=== PATIENT | female | born 1960 | race Hispanic/Latino ===

== ENCOUNTER 2021-07-24 13:51 | Inpatient (IN) | payer OTHER ==
[~2021-07-24] VITALS: Ht 160 cm; Wt 73.0 kg
[2021-07-24] VITALS (8 sets, daily range): BP systolic 104–141; BP diastolic 52–77
[2021-07-24] MEDS ORDERED: HEPARIN 10,000 UNIT/10ML (1,000 UNIT/ML) VIAL ONE (15:18)
[2021-07-24] MEDS ORDERED: LIDOCAINE HCL 1% MDV 50ML VIAL ONE (15:19)
[2021-07-24] MEDS ORDERED: IODIXANOL 320 MG/ML 100 ML VIAL ONE (15:19)
[2021-07-24] MEDS ORDERED: NITROGLYCERIN 50MG VIAL ONE (15:19)
[2021-07-24] MEDS ORDERED: SODIUM BICARB 50MEQ 50ML VIAL 50 ML ONE (15:37)
[2021-07-24] MEDS ORDERED: MIDAZOLAM HCL 1 MG/ML 2ML VIAL ONE (15:43)
[2021-07-24] MEDS ORDERED: FENTANYL CITRATE PF 50 MCG/1 ML 2ML VIAL ONE ×3 (15:43→18:17)
[2021-07-24] MEDS ORDERED: EPTIFIBATIDE 75MG/100ML BOTTLE 100 ML IV ONE (16:57)
[2021-07-24] MEDS ORDERED: EPTIFIBATIDE 2 MG/ML 10 ML VIAL IVP ONE (16:58)
[2021-07-24] MEDS ORDERED: HEPARIN 1,000 UNIT VIAL ONE (18:24)
[2021-07-24] MEDS ORDERED: CLOPIDOGREL 300MG TAB ONE (18:51)
[2021-07-24] MEDS ORDERED: 0.9%NACL 1000ML 1,000 ML IV SCH (20:00)
[2021-07-24] MEDS ORDERED: CARV25TA PO (20:10)
[2021-07-24] MEDS ORDERED: ATOR40TA69 PO (20:10)
[2021-07-24] MEDS ORDERED: ASPI-1005 PO (20:10)
[2021-07-24] MEDS ORDERED: CILO100T PO (20:10)
[2021-07-24] MEDS ORDERED: CLOP75TA32 PO (20:10)
[2021-07-24] MEDS ORDERED: AMLO-258 PO (20:10)
[2021-07-24] MEDS ORDERED: GABA600T10 PO (20:10)
[2021-07-24] MEDS ORDERED: GLIM4TAB36 PO (20:10)
[2021-07-24] MEDS ORDERED: LOSA100T58 PO (20:10)
[2021-07-24] MEDS ORDERED: EMPA25TA PO (20:10)
[2021-07-25] MEDS ORDERED: ACETAMINOPHEN 325 MG TAB PO PRN
[2021-07-25] MEDS ORDERED: PHARMACY COMMUNICATION MISC SCH
[2021-07-25] MEDS ORDERED: LACTULOSE 20 GM/30 ML UDCUP PO PRN
[2021-07-25] MEDS ORDERED: HYDROCODONE/ACETAMINOPHEN 5/325 MG TAB PO PRN
[2021-07-25] MEDS ORDERED: ACETAMINOPHEN 650 MG SUPPOSITORY RC PRN
[2021-07-25] MEDS ORDERED: ONDANSETRON 4MG INJ IVP PRN
[2021-07-25] MEDS ORDERED: HYDRALAZINE 20MG/ML VIAL IV PRN
[2021-07-25] MEDS: ZOSYN 3.375GM +NS 50ML IV SCH ×4 (02:54→23:21)
[2021-07-25 03:49] VITALS: BP 134/62
[2021-07-25] MEDS: 0.9%NACL 1000ML 1,000 ML IV SCH ×3 (04:01→23:28)
[2021-07-25 04:39] LABS: HEMATOCRIT 27.4 % (36-48); MEAN CORPUSCULAR HEMOGLOBIN 25.9 pg (27.0-33.0); MEAN CORPUSCULAR VOLUME 83.5 fL (79-99); PLATELET COUNT (AUTO) 352 K/uL (130-400); RED BLOOD CELL COUNT(AUTO) 3.28 MIL/uL (4.00-5.50); RED CELL DISTRIBUTION WIDTH 13.8 % (11.0-15.5); WHITE BLOOD COUNT (AUTO) 10.7 K/uL (4.8-10.8)
[2021-07-25 04:52] LABS: CREATININE 1.1 mg/dL (0.5-1.5); MAGNESIUM 1.8 mg/dL (1.80-2.40); PHOSPHORUS 3.3 mg/dL (2.5-4.9); POTASSIUM 3.3 mmol/L (3.5-5.1)
[2021-07-25] MEDS ORDERED: KCL 20 MEQ ERTAB PO PRN (06:30)
[2021-07-25] MEDS ORDERED: MAGNESIUM 2GM PREMIX 50ML 50 ML IV PRN (06:30)
[2021-07-25] MEDS ORDERED: ASPIRIN 81MG CHEW TAB PO SCH (07:27)
[2021-07-25 08:00] VITALS: BP 143/71
[2021-07-25 08:31] VITALS: BP 143/71
[2021-07-25] MEDS ORDERED: VANCOMYCIN 1G 1.25 GM in 0.9% NACL 250ML 250 ML IVPB SCH (09:00)
[2021-07-25] MEDS: ASPIRIN 81MG CHEW TAB PO SCH (09:21)
[2021-07-25] MEDS: CLOPIDOGREL 75MG TAB PO SCH (09:21)
[2021-07-25] MEDS: AMLODIPINE 5 MG TAB PO SCH (09:22)
[2021-07-25] MEDS: CARVEDILOL 25 MG TABLET PO SCH ×2 (09:22→20:54)
[2021-07-25] MEDS: GABAPENTIN 300 MG CAPSULE PO SCH ×3 (09:22→20:48)
[2021-07-25] MEDS ORDERED: VANCOMYCIN 1G/250ML KIT 250 ML IV SCH (09:30)
[2021-07-25 12:22] VITALS: BP 141/63
[2021-07-25 16:44] VITALS: BP 146/67
[2021-07-25] MEDS: ENOXAPARIN SODIUM 30 MG/0.3 ML SQ SCH (17:40)
[2021-07-25 20:00] VITALS: BP 129/69
[2021-07-25] MEDS ORDERED: 0.9%NACL 100ML 100 ML ONE (20:43)
[2021-07-25] MEDS: VANCOMYCIN 500MG+NS 100ML 100 ML IV SCH (20:48)
[2021-07-25] MEDS: ATORVASTATIN 40 MG TABLET PO SCH (20:48)
[2021-07-26] VITALS (19 sets, daily range): BP systolic 117–155; BP diastolic 52–78
[2021-07-26] MEDS: GABAPENTIN 300 MG CAPSULE PO SCH ×3 (08:49→22:32)
[2021-07-26] MEDS: ZOSYN 3.375GM +NS 50ML IV SCH ×3 (08:50→23:50)
[2021-07-26] MEDS: CARVEDILOL 25 MG TABLET PO SCH ×2 (08:50→22:31)
[2021-07-26] MEDS: AMLODIPINE 5 MG TAB PO SCH (08:54)
[2021-07-26] MEDS: CLOPIDOGREL 75MG TAB PO SCH (08:54)
[2021-07-26] MEDS: ENOXAPARIN SODIUM 30 MG/0.3 ML SQ SCH (08:55)
[2021-07-26] MEDS: ASPIRIN 81MG CHEW TAB PO SCH (08:56)
[2021-07-26] MEDS: VANCOMYCIN 500MG+NS 100ML 100 ML IV SCH ×2 (08:56→22:31)
[2021-07-26] MEDS: 0.9%NACL 1000ML 1,000 ML IV SCH (16:39)
[2021-07-26] MEDS ORDERED: 0.9%NACL 100ML 100 ML ONE (19:39)
[2021-07-26] MEDS ORDERED: LIDOCAINE HCL 400MG/20ML VIAL ONE (19:48)
[2021-07-26] MEDS ORDERED: BUPIVACAINE/PF 0.5% 30ML VIAL ONE (19:48)
[2021-07-26] MEDS ORDERED: MIDAZOLAM HCL 1 MG/ML 2ML VIAL ONE (20:09)
[2021-07-26] MEDS ORDERED: FENTANYL CITRATE PF 50 MCG/1 ML 2ML VIAL ONE (20:09)
[2021-07-26] MEDS: ATORVASTATIN 40 MG TABLET PO SCH (22:32)
[2021-07-27] VITALS (8 sets, daily range): BP systolic 128–155; BP diastolic 56–95
[2021-07-27] MEDS ORDERED: MORPHINE 2 MG SYG IVP PRN (01:30)
[2021-07-27] MEDS: 0.9%NACL 1000ML 1,000 ML IV SCH ×2 (04:24→20:04)
[2021-07-27] MEDS: ZOSYN 3.375GM +NS 50ML IV SCH ×2 (08:02→15:06)
[2021-07-27] MEDS: ENOXAPARIN SODIUM 30 MG/0.3 ML SQ SCH (08:03)
[2021-07-27] MEDS: ASPIRIN 81MG CHEW TAB PO SCH (08:03)
[2021-07-27] MEDS: CARVEDILOL 25 MG TABLET PO SCH ×2 (08:03→20:05)
[2021-07-27] MEDS: AMLODIPINE 5 MG TAB PO SCH (08:04)
[2021-07-27] MEDS: CLOPIDOGREL 75MG TAB PO SCH (08:04)
[2021-07-27] MEDS: GABAPENTIN 300 MG CAPSULE PO SCH ×3 (08:05→20:05)
[2021-07-27] MEDS: HYDROMORPHONE 0.5 MG SYG (0.5MG/0.5ML) IVP PRN ×2 (08:07→20:06)
[2021-07-27] MEDS: VANCOMYCIN 500MG+NS 100ML 100 ML IV SCH ×2 (08:07→20:04)
[2021-07-27] MEDS: ATORVASTATIN 40 MG TABLET PO SCH (20:05)
[2021-07-28 03:50] VITALS: BP 126/64
[2021-07-28] MEDS: ZOSYN 3.375GM +NS 50ML IV SCH ×4 (03:57→23:48)
[2021-07-28 06:23] VITALS: BP 141/63
[2021-07-28] MEDS: POTASSIUM CHLORIDE 10% ELIXIR 20 MEQ/15 ML UDCUP PO PRN ×3 (07:25→09:21)
[2021-07-28] MEDS: GABAPENTIN 300 MG CAPSULE PO SCH ×3 (09:15→20:57)
[2021-07-28] MEDS: CARVEDILOL 25 MG TABLET PO SCH ×2 (09:16→20:58)
[2021-07-28] MEDS: ASPIRIN 81MG CHEW TAB PO SCH (09:16)
[2021-07-28] MEDS: CLOPIDOGREL 75MG TAB PO SCH (09:16)
[2021-07-28] MEDS: ENOXAPARIN SODIUM 30 MG/0.3 ML SQ SCH (09:17)
[2021-07-28] MEDS: AMLODIPINE 5 MG TAB PO SCH (09:17)
[2021-07-28] MEDS: VANCOMYCIN 500MG+NS 100ML 100 ML IV SCH ×2 (09:18→20:56)
[2021-07-28 11:00] VITALS: BP 129/60
[2021-07-28 16:00] VITALS: BP 138/67
[2021-07-28 19:11] VITALS: BP 152/71
[2021-07-28] MEDS ORDERED: 0.9%NACL 100ML 100 ML ONE (20:10)
[2021-07-28] MEDS: ATORVASTATIN 40 MG TABLET PO SCH (20:57)
[2021-07-28] MEDS: HYDROMORPHONE 0.5 MG SYG (0.5MG/0.5ML) IVP PRN (20:59)
[2021-07-28] MEDS: 0.9%NACL 1000ML 1,000 ML IV SCH (21:20)
[2021-07-28 23:06] VITALS: BP 142/64
[2021-07-29 03:13] VITALS: BP 126/59
[2021-07-29 04:30] LABS: HEMATOCRIT 23.4 % (36-48); MEAN CORPUSCULAR HEMOGLOBIN 26.4 pg (27.0-33.0); MEAN CORPUSCULAR HGB CONC 32.1 g/dL (32.0-36.0); MEAN CORPUSCULAR VOLUME 82.4 fL (79-99); RED BLOOD CELL COUNT(AUTO) 2.84 MIL/uL (4.00-5.50); RED CELL DISTRIBUTION WIDTH 14.2 % (11.0-15.5); WHITE BLOOD COUNT (AUTO) 9.4 K/uL (4.8-10.8)
[2021-07-29 05:00] LABS: ALBUMIN 2.2 g/dL (3.5-5.0); BILIRUBIN,TOTAL 0.4 mg/dL (0.2-1.0); CREATININE 1.2 mg/dL (0.5-1.5); POTASSIUM 3.2 mmol/L (3.5-5.1); TOTAL PROTEIN, SERUM 6.1 g/dL (6.0-8.3)
[2021-07-29] MEDS: POTASSIUM CHLORIDE 10% ELIXIR 20 MEQ/15 ML UDCUP PO PRN ×2 (05:15→07:00)
[2021-07-29 08:00] VITALS: BP 153/66
[2021-07-29] MEDS: ZOSYN 3.375GM +NS 50ML IV SCH (08:54)
[2021-07-29] MEDS: VANCOMYCIN 500MG+NS 100ML 100 ML IV SCH ×2 (08:54→21:41)
[2021-07-29] MEDS: GABAPENTIN 300 MG CAPSULE PO SCH ×3 (08:55→21:45)
[2021-07-29] MEDS: CLOPIDOGREL 75MG TAB PO SCH (08:56)
[2021-07-29] MEDS: CARVEDILOL 25 MG TABLET PO SCH ×2 (08:56→21:45)
[2021-07-29] MEDS: ENOXAPARIN SODIUM 30 MG/0.3 ML SQ SCH ×2 (08:56→09:00)
[2021-07-29] MEDS: AMLODIPINE 5 MG TAB PO SCH (08:56)
[2021-07-29] MEDS: ASPIRIN 81MG CHEW TAB PO SCH (08:56)
[2021-07-29] MEDS: CEFTRIAXONE 2GM VIAL IVP SCH (11:55)
[2021-07-29 12:40] VITALS: BP 149/63
[2021-07-29 16:30] VITALS: BP 163/81
[2021-07-29 19:16] VITALS: BP 156/69
[2021-07-29] MEDS: ATORVASTATIN 40 MG TABLET PO SCH (21:45)
[2021-07-29] MEDS: DOXYCYCLINE HYCLATE 100 MG TABLET PO SCH (21:45)
[2021-07-29 23:04] VITALS: BP 137/54
[2021-07-30] MEDS: CEPHALEXIN 500 MG CAPSULE PO SCH ×2 (06:00→11:20)
[2021-07-30 07:48] VITALS: BP 147/79
[2021-07-30 09:36] LABS: MEAN CORPUSCULAR HEMOGLOBIN 26.6 pg (27.0-33.0); MEAN CORPUSCULAR HGB CONC 32.1 g/dL (32.0-36.0); MEAN CORPUSCULAR VOLUME 82.8 fL (79-99); RED BLOOD CELL COUNT(AUTO) 3.38 MIL/uL (4.00-5.50); RED CELL DISTRIBUTION WIDTH 14.1 % (11.0-15.5); WHITE BLOOD COUNT (AUTO) 9.4 K/uL (4.8-10.8)
[2021-07-30 09:55] LABS: CREATININE 0.9 mg/dL (0.5-1.5); POTASSIUM 3.8 mmol/L (3.5-5.1)
[2021-07-30] MEDS ORDERED: 0.9%NACL 100ML 100 ML ONE ×2 (10:05→14:49)
[2021-07-30] MEDS: CEFTRIAXONE 2GM VIAL IVP SCH (10:06)
[2021-07-30] MEDS: ASPIRIN 81MG CHEW TAB PO SCH (10:06)
[2021-07-30] MEDS: AMLODIPINE 5 MG TAB PO SCH (10:06)
[2021-07-30] MEDS: ENOXAPARIN SODIUM 30 MG/0.3 ML SQ SCH (10:07)
[2021-07-30] MEDS: DOXYCYCLINE HYCLATE 100 MG TABLET PO SCH (10:07)
[2021-07-30] MEDS: CARVEDILOL 25 MG TABLET PO SCH (10:07)
[2021-07-30] MEDS: CLOPIDOGREL 75MG TAB PO SCH (10:07)
[2021-07-30] MEDS: GABAPENTIN 300 MG CAPSULE PO SCH ×2 (10:10→14:50)
[2021-07-30] MEDS: VANCOMYCIN 500MG+NS 100ML 100 ML IV SCH (10:11)
[2021-07-30 11:26] VITALS: BP 154/62
[2021-07-30] MEDS: INSULIN HUMULIN R 100 UNIT/ML 3ML SQ SCH ×2 (12:24→16:22)
[2021-07-30] MEDS ORDERED: NON-FORMULARY MEDICATION 1 EACH (Gabapentin 600 MG) PO SCH (14:00)
[2021-07-30] MEDS ORDERED: VANCOMYCIN 500MG+NS 100ML 100 ML IV SCH (15:00)
[2021-07-30] MEDS ORDERED: DOXY100C5 PO (15:09)
[2021-07-30] MEDS ORDERED: CEPH500B PO (15:09)
[2021-07-30 16:51] VITALS: BP 152/71
[2021-07-30] MEDS ORDERED: HONEY 1 APPL/ML TUBE TP SCH (17:00)
[2021-07-30] MEDS ORDERED: GLIMEPIRIDE 2 MG TABLET PO SCH (21:00)
[2021-07-31] MEDS ORDERED: NON-FORMULARY MEDICATION 1 EACH (Amlodipine Besylate 10 MG) PO SCH (09:00)
[2021-07-31] MEDS ORDERED: LOSARTAN 100 MG TABLET PO SCH (09:00)
== END 2021-07-30 17:57 | disposition home or self-care (01) | DRG 271 ==
LOC: 2DH 15:11
PROVIDERS: ADMIT Internal Medicine Critical Care Medicine; ATTEND Internal Medicine Critical Care Medicine
PROC: 04CU3ZZ Extirpation of Matter from Left Peroneal Artery, Percutaneous Approach (ICD-10-PCS; principal; 2021-07-24)
PROC: 04CN3ZZ Extirpation of Matter from Left Popliteal Artery, Percutaneous Approach (ICD-10-PCS; 2021-07-24)
PROC: 04CL3ZZ Extirpation of Matter from Left Femoral Artery, Percutaneous Approach (ICD-10-PCS; 2021-07-24)
PROC: 047U3D1 Dilation of Left Peroneal Artery with Intraluminal Device, using Drug-Coated Balloon, Percutaneous Approach (ICD-10-PCS; 2021-07-24)
PROC: 04CS3ZZ Extirpation of Matter from Left Posterior Tibial Artery, Percutaneous Approach (ICD-10-PCS; 2021-07-24)
PROC: 047S3ZZ Dilation of Left Posterior Tibial Artery, Percutaneous Approach (ICD-10-PCS; 2021-07-24)
PROC: 047L3ZZ Dilation of Left Femoral Artery, Percutaneous Approach (ICD-10-PCS; 2021-07-24)
PROC: 047N3D1 Dilation of Left Popliteal Artery with Intraluminal Device, using Drug-Coated Balloon, Percutaneous Approach (ICD-10-PCS; 2021-07-24)
PROC: B4101ZZ Fluoroscopy of Abdominal Aorta using Low Osmolar Contrast (ICD-10-PCS; 2021-07-24)
PROC: B41G1ZZ Fluoroscopy of Left Lower Extremity Arteries using Low Osmolar Contrast (ICD-10-PCS; 2021-07-24)
PROC: 0Y6N0Z9 Detachment at Left Foot, Partial 1st Ray, Open Approach (ICD-10-PCS; 2021-07-26)
PROC: 0JBR0ZZ Excision of Left Foot Subcutaneous Tissue and Fascia, Open Approach (ICD-10-PCS; 2021-07-26)
DX: E11.52 Type 2 diabetes mellitus with diabetic peripheral angiopathy with gangrene (principal); I50.22 Chronic systolic (congestive) heart failure; L03.116 Cellulitis of left lower limb; L97.429 Non-pressure chronic ulcer of left heel and midfoot with unspecified severity; I96 Gangrene, not elsewhere classified; E11.65 Type 2 diabetes mellitus with hyperglycemia; E66.9 Obesity, unspecified; I11.0 Hypertensive heart disease with heart failure; I25.10 Atherosclerotic heart disease of native coronary artery without angina pectoris; Z20.822 Contact with and (suspected) exposure to COVID-19; E78.5 Hyperlipidemia, unspecified; I25.2 Old myocardial infarction; Z95.810 Presence of automatic (implantable) cardiac defibrillator; E11.621 Type 2 diabetes mellitus with foot ulcer; Z79.899 Other long term (current) drug therapy; Z68.25 Body mass index [BMI] 25.0-25.9, adult
CPT/HCPCS: 36415; 37184; 37185; 37225; 37229; 73630; 73700; 75716; 80048; 80053; 80061; 80202; 82948; 83735; 84100; 84132; 85027; 85347; 87070; 87076; 87077; 87186; 87205; 87635; 97039; 99156; 99157; C1760; C1769; C1893; C1894; G0378; J0696; J1170; J1327; J1644; J1650; J1815; J2250; J2543; J3010; J3370; J3475; J3490; J7030; Q9967

== ENCOUNTER → 2024-03-02 | Outpatient (CLI) | payer MEDICARE ==
[~2024-03-02] MED LIST: AMLO-258 PO; ASPI-1005 PO; ATOR40TA69 PO; CARV25TA PO; CEPH500B PO; CILO100T3 PO; CLOP75TA32 PO; DOXY100C5 PO; EMPA25TA PO; GABA-1405 PO; GLIM4TAB36 PO; LOSA100T59 PO
[2024-03-02 12:01] LABS: BASOPHILS # (AUTO) 0.05 K/uL (0.00-0.20); BASOPHILS % (AUTO) 0.6 % (0.0-5.0); EOSINOPHILS # (AUTO) 0.19 K/uL (0.00-0.70); EOSINOPHILS % (AUTO) 2.3 % (0.0-8.0); IMMATURE GRANULOCYTE ABSOLUTE 0.04 K/uL (0-1); LYMPHOCYTES # (AUTO) 1.8 K/uL (1.0-4.8); LYMPHOCYTES % (AUTO) 22.2 % (21.0-51.0); MEAN CORPUSCULAR HEMOGLOBIN 27.5 pg (27.0-33.0); MEAN CORPUSCULAR HGB CONC 32.3 g/dL (32.0-36.0); MEAN CORPUSCULAR VOLUME 85.2 fL (79-99); MONOCYTES # (AUTO) 0.5 K/uL (0.1-1.0); MONOCYTES % (AUTO) 6.5 % (3.0-13.0); NEUTROPHILS # (AUTO) 5.6 K/uL (1.8-7.7); NEUTROPHILS % (AUTO) 67.9 % (40.0-77.0); PLATELET COUNT (AUTO) 305 K/uL (130-400); RED BLOOD CELL COUNT(AUTO) 4.58 MIL/uL (4.00-5.50); RED CELL DISTRIBUTION WIDTH 13.1 % (11.0-15.5); WHITE BLOOD COUNT (AUTO) 8.3 K/uL (4.8-10.8)
[2024-03-02 12:23] LABS: ALBUMIN 3.9 g/dL (3.5-5.0); BILIRUBIN,TOTAL 1.3 mg/dL (0.2-1.0); CREATININE 0.8 mg/dL (0.5-1.0); POTASSIUM 4.2 mmol/L (3.5-5.1); TOTAL PROTEIN, SERUM 7.3 g/dL (6.0-8.3)
== END | disposition home or self-care (01) ==
LOC: LAB 10:32
PROVIDERS: ATTEND Internal Medicine Cardiovascular Disease
DX: I25.2 Old myocardial infarction (principal); I73.9 Peripheral vascular disease, unspecified
CPT/HCPCS: 36415; 80053; 80061; 85025

== ENCOUNTER → 2024-04-28 | Outpatient (CLI) | payer MEDICARE ==
[~2024-04-28] MED LIST changes: +AMLO-257 PO; -AMLO-258 PO; -ATOR40TA69 PO; -CEPH500B PO; -CILO100T3 PO; +CLON1PAT12 TD; +DAPA5TAB PO; -DOXY100C5 PO; -EMPA25TA PO; +EZET10TA48 PO; -GABA-1405 PO; +GABA-529 PO; +HYDR25TA PO; +METF-446 PO; +ROSU10TA72 PO
[2024-04-28 12:21] LABS: CREATININE 0.9 mg/dL (0.5-1.0); POTASSIUM 4.4 mmol/L (3.5-5.1)
== END | disposition home or self-care (01) ==
LOC: LAB 09:41
PROVIDERS: ATTEND Internal Medicine Cardiovascular Disease
DX: I10 Essential (primary) hypertension (principal); E78.2 Mixed hyperlipidemia; I87.2 Venous insufficiency (chronic) (peripheral)
CPT/HCPCS: 36415; 80048

== ENCOUNTER → 2024-05-25 | Outpatient (CLI) | payer MEDICARE ==
[2024-05-25 12:44] LABS: CREATININE 1.1 mg/dL (0.5-1.0); MAGNESIUM 2.1 mg/dL (1.80-2.40)
== END | disposition home or self-care (01) ==
LOC: LAB 09:35
PROVIDERS: ATTEND Internal Medicine Cardiovascular Disease
DX: I25.810 Atherosclerosis of coronary artery bypass graft(s) without angina pectoris (principal); I65.22 Occlusion and stenosis of left carotid artery; I25.2 Old myocardial infarction
CPT/HCPCS: 36415; 80048; 83735

== ENCOUNTER 2024-07-28 19:08 | Emergency (ER) | payer MEDICARE, MEDICAID ==
[~2024-07-28] VITALS: Ht 160 cm; Wt 70.3 kg
[~2024-07-28 19:08] MED LIST changes: -AMLO-257 PO; +AMLO-258 PO; +AMOX1TAB16 PO; +CLON0.1T PO; -CLON1PAT12 TD; -DAPA5TAB PO; -EZET10TA48 PO
--- NOTE | 2024-07-28 19:49 | ERN ---
General Chief Complaint: Neck Pain Stated Complaint: C/O PAIN TO NECK AND THROAT; NECK SX (06/25/2024) Time Seen by MD: 19:26 History of Present Illness Initial Comments Patient is a 64-year-old female with multiple medical problems including hypertension diabetes peripheral vascular disease status post carotid endarterectomy a month ago states that she has had neck pain and difficulty swallowing and a tightness in her throat ever since the surgery. No fevers positive chills. No difficulty swallowing. She does report that she has a cough and shortness of breath. Incision from the carotid endarterectomy is well healed. She does state that the ET tube created a lot of pain when she woke up from surgery. Her voice sounds normal to her. No posterior neck pain and no neurovascular symptoms in any of her extremities. Allergies: Coded Allergies: pioglitazone (Unverified Allergy, Unknown, 04/23/24) Home Meds Active Scripts Amoxicillin/Potassium Clav (Amox Tr-K Clv 875-125 mg Tab) 875 Mg-125 Mg Tablet, 1 TAB PO BID for 10 Days, #20 TAB 0 Refills Prov:PAUL NGO HEEL BUFFER 07/14/24 Reported Medications Clonidine HCl (Clonidine HCl) 0.1 Mg Tablet, 0.1 MG PO BID, TAB 07/10/24 Amlodipine Besylate (Amlodipine Besylate) 10 Mg Tablet, 1 TAB PO DAILY for 30 Days, #30 TAB 0 Refills 07/10/24 Rosuvastatin Calcium (Rosuvastatin Calcium) 10 Mg Tablet, 20 MG PO PM, TAB 04/21/24 Hydrochlorothiazide (Hydrochlorothiazide) 25 Mg Tablet, 25 MG PO AM, TAB 04/21/24 Gabapentin (Gabapentin) 100 Mg Capsule, 100 MG PO TID, CAP 04/21/24 Metformin HCl (Metformin HCl) 1,000 Mg Tablet, 1000 MG PO BID, TAB RESUME METFORMIN 04/24/24 04/21/24 Glimepiride (Glimepiride) 4 Mg Tablet, 4 MG PO BID, TAB 07/24/21 Carvedilol (Carvedilol) 25 Mg Tablet, 25 MG PO BID, TAB 07/24/21 Losartan Potassium (Losartan Potassium) 100 Mg Tablet, 100 MG PO DAILY, TAB 07/24/21 Clopidogrel Bisulfate (Clopidogrel) 75 Mg Tablet, 75 MG PO DAILY, TAB 07/24/21 Aspirin (ASPIRIN 81MG CHEW TAB) 81 Mg Tab.chew, 81 MG PO DAILY, TAB.CHEW 07/24/21 Past Medical History Past Medical History: Diabetes-Type II, High Cholesterol, Hypertension Medical History Other: TAKES BLOOD THINNERS Past Surgical History: Cholecystectomy, Other Surgical History Other: OPEN HEART (2018), NECK SX (06/25/2024); LEFT TOE AMPUTATION Constitutional: (+) chills EENTM: (-) eye pain, (-) blurred vision, (-) tearing, (-) double vision, (-) ear pain, (-) ear discharge, (-) nose pain, (-) nose congestion, (-) throat pain, (-) Throat swelling, (-) mouth pain, (-) tooth pain, (-) mouth swelling, (-) other documentation Respiratory: (+) cough, (+) short of breath Cardiovascular: (-) chest pain, (-) edema, (-) palpitations, (-) syncope, (-) dyspnea on exertion, (-) other documentation Gastrointestinal/Abdominal: (-) nausea, (-) vomiting, (-) diarrhea, (-) abdominal pain, (-) abdominal distention, (-) constipation, (-) rectal bleeding, (-) dark stool/melena, (-) other documentation Skin: (-) laceration, (-) contusion, (-) abrasion, (-) abscess, (-) rash, (-) change in color, (-) change in hair, (-) change in nails, (-) diaphoresis, (-) dryness, (-) other documentation Physical Exam General Appearance: (+) no apparent distress Orientation: (+) alert, (+) oriented x 3 Head/Face Trauma: No Eye: bilateral eye normal inspection, bilateral eye PERRL, bilateral eye EOMI Ear, Nose, Throat: (+) hearing grossly normal, (+) normal ENT inspection, (+) moist mucous membraine Ear, Nose, Throat Comment No tongue deviation when protruding from the mouth. No swollen lymph nodes. She does have numbness in the submental region medial to the incision to midline. Good sensation all along the mandible. Good sensation lateral to the incision. Neck: (+) normal inspection, (+) supple, (+) full range of motion Neck Comment Well-healed endarterectomy incision on her left neck. Still some residual Dermabond present on the skin, no signs of infection, nontender. No lymphadenopathy. Respiratory: (+) chest non-tender, (+) lungs clear, (+) well ventilated Heart: (+) regular, (+) no gallop Gastrointestinal: (+) soft, (+) non-tender, (+) bowel sound present Extremities: (+) normal range of motion, (+) non-tender, (+) normal inspection Results Laboratory and Microbiology Lab and Micro Result Laboratory Tests Test 07/28/24 20:05 07/28/24 20:10 07/28/24 20:28 07/28/24 20:43 White Blood Count 8.9 K/uL (4.8-10.8) Red Blood Count 3.83 MIL/uL (4.00-5.50) L Hemoglobin 10.9 g/dL (12.0-16.0) L Hematocrit 32.5 % (36-48) L Mean Corpuscular Volume 84.9 fL (79-99) Mean Corpuscular Hemoglobin 28.5 pg (27.0-33.0) Mean Corpuscular Hemoglobin Concent 33.5 g/dL (32.0-36.0) Red Cell Distribution Width 13.9 % (11.0-15.5) Platelet Count 303 K/uL (130-400) Mean Platelet Volume 9.8 fL (7.5-10.5) Immature Granulocyte % (Auto) 0.3 % (0-1) Neutrophils (%) (Auto) 74.7 % (40.0-77.0) Lymphocytes (%) (Auto) 17.4 % (21.0-51.0) L Monocytes (%) (Auto) 5.4 % (3.0-13.0) Eosinophils (%) (Auto) 1.6 % (0.0-8.0) Basophils (%) (Auto) 0.6 % (0.0-5.0) Neutrophils # (Auto) 6.7 K/uL (1.8-7.7) Lymphocytes # (Auto) 1.6 K/uL (1.0-4.8) Monocytes # (Auto) 0.5 K/uL (0.1-1.0) Eosinophils # (Auto) 0.14 K/uL (0.00-0.70) Basophils # (Auto) 0.05 K/uL (0.00-0.20) Absolute Immature Granulocyte (auto 0.03 K/uL (0-1) Nucleated Red Blood Cells 0.0 % (0.0-0.19) Influenza Type A Antigen Negative For Type A Influenza Type B Antigen Negative For Type B SARS-CoV-2 Antigen (Rapid) PRESUMPTIVE NEGATIVE Group A Streptococcus Rapid negative (NEGATIVE) Sodium Level 139 mmol/L (136-145) Potassium Level 4.2 mmol/L (3.5-5.1) Chloride Level 104 mmol/L (101-111) Carbon Dioxide Level 25 mmol/L (21-32) Blood Urea Nitrogen 15 mg/dL (7-18) Creatinine 0.9 mg/dL (0.5-1.0) Glomerular Filtration Rate Calc 71 mL/min (>90) Random Glucose 101 mg/dL (70-105) Total Calcium 8.8 mg/dL (8.5-10.1) Urine Color COLORLESS (YELLOW) Urine Appearance CLOUDY (CLEAR) H Urine pH 5.5 (5.0-8.0) Urine Specific [place] 1.007 (1.001-1.031) Urine Protein NEGATIVE mg/dL (NEGATIVE) Urine Glucose (UA) NEGATIVE mg/dL (NEGATIVE) Urine Ketones NEGATIVE mg/dL (NEGATIVE) Urine Occult Blood NEGATIVE (NEGATIVE) Urine Nitrate NEGATIVE (NEGATIVE) Urine Bilirubin NEGATIVE mg/dL (NEGATIVE) Urine Urobilinogen 0.2 mg/dL (0.2-1.0) Urine Leukocyte Esterase 500 [place]/uL (NEGATIVE) H Urine RBC 2-5 /HPF (0-1) H Urine WBC 26-50 /HPF (0-1) H Urine Squamous Epithelial Cells RARE /HPF (0-2) Urine Transitional Epithelial Cells RARE /HPF (None Seen) Urine Bacteria RARE /HPF (None Seen) MDM MDM: Differential diagnosis: cricopharyngeal hypertrophy, vocal chord damage, hypovolemia, abcess, cranial nerve damage Rationale: Tests considered and ordered secondary to shared decision making include: Previous outside records reviewed: Old ER visits. Risk of complication and/or morbidity or mortality of patient management: None Medications-Per medication reconciliation Need for hospitalization: Patient does meet criteria for hospitalization. Need for emergency major/minor surgery: No There are no social concerns with this patient. Prescription drug management Prescriptions will include symptomatic care Patient's prior external medical records from other ER visits were reviewed by me as indicated. Prior testing and results from previous visits were reviewed. Prior tests were taken into account with medical decision making and resource utilization, independent historian/historians were used to obtain complete medical history. I independently interpreted the test that were performed, results were reviewed by me and considered findings on radiology if ordered. She has scan of the patient's soft tissues in the neck rules out cricopharyngeal hypertrophy. There are no other injuries soft tissue or bony that I could see on the CT scan of the patient's head or neck. Patient's laboratory analysis shows that she has a urinary tract infection. I will discharge her home with a prescription for nitrofurantoin. I do not have an explanation for the patient's throat symptoms I can only recommend that she follow up with the ENT. ED Course Orders Procedure Category Date Status Time Orthostatic Vital CPOE 07/28/24 Transmitted Signs 19:38 Lactated Ringers PHA 07/28/24 Complete 1000ml (Lactated 19:38 Basic Metabolic Panel LAB 07/28/24 Complete 19:38 Cbc With Differential LAB 07/28/24 Complete 19:38 Urinalysis Profile LAB 07/28/24 Complete 19:38 Influenza Type A & B, LAB 07/28/24 Complete Rapid 19:38 Rapid (Group A Strep) LAB 07/28/24 Complete 19:38 Covid19 (Sars Antigen LAB 07/28/24 Complete Rapid) 19:[address] Ct Neck Soft Tiss CT 07/28/24 Resulted W/Contrast 19:38 Iohexol (Omnipaque) PHA 07/28/24 Complete 21:10 Culture Urine MARCELLE 07/28/24 In Process 21:27 Current Medications Medications (Trade) Dose Ordered Sig/[place] Route PRN Reason Start Time Stop Time Status Last Admin Dose Admin Iohexol (Omnipaque) 35,000 mg STK-MED ONCE IV 07/28/24 21:10 07/28/24 21:11 DC Lactated Ringer's (Lactated Ringers 1000ml) 1,000 ml BOLUS STAT IV 07/28/24 19:38 07/28/24 19:43 DC 07/28/24 20:14 Vital Signs Date Time Temp Pulse Resp B/P (MAP) Pulse Ox O2 Delivery O2 Flow Rate FiO2 07/28/24 20:19 58 18 137/48 96 Room Air* 0 21 07/28/24 20:17 57 16 131/56 96 Room Air* 0 21 07/28/24 20:15 57 16 134/45 97 Room Air* 0 21 07/28/24 19:11 98.2 65 20 146/54 97 Room Air DX & DISP Disposition: Discharge Departure Impression: Primary Impression: UTI (urinary tract infection) Additional Impression: Throat tightness Condition: Stable Scripts Nitrofurantoin Monohyd/M-Cryst (Nitrofurantoin [place]-Mcr 100 mg) 100 Mg Capsule 1 CAP PO BID for 7 Days, #14 CAP 0 Refills Prov: LUIGI BRAXTON MD 07/28/24 Additional Instructions: Please return if the symptoms of the urinary tract infection do not improve after a few days. Please follow-up with your surgeon and possibly an ENT doctor regarding your throat tightness. Referrals: SONIA VILLALPANDO (PCP) LUIGI BRAXTON MD Jul 28, 2024 19:49
--- NOTE | 2024-07-28 20:10 | NUR ---
consent signed for ct of the neck soft tissue with iv contrast
[2024-07-28 20:11] LABS: BASOPHILS # (AUTO) 0.05 K/uL (0.00-0.20); BASOPHILS % (AUTO) 0.6 % (0.0-5.0); EOSINOPHILS # (AUTO) 0.14 K/uL (0.00-0.70); EOSINOPHILS % (AUTO) 1.6 % (0.0-8.0); HEMATOCRIT 32.5 % (36-48); IMMATURE GRANULOCYTE ABSOLUTE 0.03 K/uL (0-1); LYMPHOCYTES # (AUTO) 1.6 K/uL (1.0-4.8); LYMPHOCYTES % (AUTO) 17.4 % (21.0-51.0); MEAN CORPUSCULAR HEMOGLOBIN 28.5 pg (27.0-33.0); MEAN CORPUSCULAR HGB CONC 33.5 g/dL (32.0-36.0); MEAN CORPUSCULAR VOLUME 84.9 fL (79-99); MONOCYTES # (AUTO) 0.5 K/uL (0.1-1.0); MONOCYTES % (AUTO) 5.4 % (3.0-13.0); NEUTROPHILS # (AUTO) 6.7 K/uL (1.8-7.7); NEUTROPHILS % (AUTO) 74.7 % (40.0-77.0); PLATELET COUNT (AUTO) 303 K/uL (130-400); RED BLOOD CELL COUNT(AUTO) 3.83 MIL/uL (4.00-5.50); RED CELL DISTRIBUTION WIDTH 13.9 % (11.0-15.5); WHITE BLOOD COUNT (AUTO) 8.9 K/uL (4.8-10.8)
[2024-07-28] MEDS: LACTATED RINGERS 1000ML IV STA (20:14)
[2024-07-28 20:28] LABS: RAPID GROUP A STREP negative (NEGATIVE)
[2024-07-28 20:37] LABS: COVID19 (SARS ANTIGEN RAPID) PRESUMPTIVE NEGATIVE (NEGATIVE); INFLUENZA TYPE A Negative For Type A (NEGATIVE); INFLUENZA TYPE B Negative For Type B (NEGATIVE)
[2024-07-28 20:47] LABS: CREATININE 0.9 mg/dL (0.5-1.0); POTASSIUM 4.2 mmol/L (3.5-5.1)
[2024-07-28] MEDS ORDERED: IOHEXOL 350 MG/ML 100ML INFUS..BTL IV ONE (21:10)
[2024-07-28 21:24] LABS: APPEARANCE,URINE CLOUDY (CLEAR); BILIRUBIN,URINE NEGATIVE (NEGATIVE); COLOR,URINE COLORLESS (YELLOW); GLUCOSE, URINE (UA) NEGATIVE (NEGATIVE); KETONES,URINE NEGATIVE (NEGATIVE); LEUKOCYTE ESTERASE ,URINE 500 Leu/uL (NEGATIVE); NITRATE,URINE NEGATIVE (NEGATIVE); OCCULT BLOOD,URINE NEGATIVE (NEGATIVE); PH,URINE 5.5 (5.0-8.0); PROTEIN,URINE NEGATIVE (NEGATIVE); UROBILINOGEN,URINE 0.2 mg/dL (0.2-1.0)
[2024-07-28 21:27] LABS: ADD UA MICROSCOPIC YES
[2024-07-28 21:32] LABS: BACTERIA,URINE RARE /HPF (None Seen); MUCUS,URINE RARE LPF (None Seen); SQUAMOUS EPITHELIAL CELL,UR RARE /HPF (0-2); TRANSITIONAL EPI CELLS,URINE RARE /HPF (None Seen); WBC,URINE 26-50 /HPF (0-1)
--- NOTE | 2024-07-28 21:42 | HMCIMG ---
Exam Type: CT NECK SOFT TISS W/CONTRAST Clinical Information: throat tightening post-op Comparison: None CT Dose Index (CTDI): 7.98 mGy Dose Length Product (DLP): 178.1 total mGy-cm PROTOCOL: Photography is done at 3.8 millimeter thick intervals for the head. The study was performed in the axial plane, and reconstructed and photographed in sagittal and coronal planes as well. Findings: No lymphadenopathy is seen. No fluid collections or masses are identified. The vascular, muscular, as well as subcutaneous structures are preserved. No significant paranasal sinus pathology is seen. The base of the skull is unremarkable. There are no significant upper airway abnormalities. IMPRESSION: Normal CT of the neck. This study was performed using dose reduction techniques to include automated exposure control and/or adjustment of the mA and/or kV according to patient size.
[2024-07-28] MEDS ORDERED: NITR100C9 PO (22:08)
[2024-07-28 22:09] VITALS: BP 168/72; PULSE 69; RESP 18; O2SAT 98
== END 2024-07-28 22:23 | disposition home or self-care (01) ==
LOC: EDH 19:08
DX: N39.0 Urinary tract infection, site not specified (principal); R07.0 Pain in throat; E11.9 Type 2 diabetes mellitus without complications; E78.00 Pure hypercholesterolemia, unspecified; I10 Essential (primary) hypertension; Z20.822 Contact with and (suspected) exposure to COVID-19; Z79.02 Long term (current) use of antithrombotics/antiplatelets; Z79.82 Long term (current) use of aspirin; Z79.84 Long term (current) use of oral hypoglycemic drugs; Z79.899 Other long term (current) drug therapy; Z90.49 Acquired absence of other specified parts of digestive tract; Z98.890 Other specified postprocedural states
CPT/HCPCS: 99285; 96360; 70491; 96361; 87426; 80048; 85025; 87086; 87880; 87804 ×2; 81001; 36415; J7120; Q9967